=== PATIENT | male | born 1950 | race Caucasian/White ===

== ENCOUNTER 2016-11-25 15:57 | Inpatient (IN) | payer OTHER, MEDICARE ==
[~2016-11-25] VITALS: Ht 185.4 cm; Wt 121.1 kg
--- NOTE | ~2016-11-25 | EKG ---
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 : 1950 Requested By: Mireya Rivera Order Number: [id number] MD: Fady Ruiz Measurements Intervals [place] Rate: 59 P: 22 [place]: 171 QRS: -11 QRSD: 81 T: 11 QT: 388 QTc: 385 Interpretive Statements Sinus rhythm RSR' in V1 or V2, right VCD Left ventricular hypertrophy Compared to ECG 09/29/2015 16:29:12 no significant change was found Electronically Signed On 11-26-2016 8:51:18 CDT by Fady Ruiz [email or web address] <ELECTRONICALLY SIGNED> By: Fady Ruiz MD, [facility] 11/26/16 0851 1611 1611 Fady Ruiz MD, [facility] /EPI
[~2016-11-25 15:57] MED LIST: ATORVASTATIN CA40 MG PO; IBUPROFEN 800800 M1 PO; PREVACID30 MG PO
[2016-11-25 16:09] VITALS: BP 162/109
[2016-11-25 17:30] LABS: BASOPHILS 0.7 % (0.0-2.0); EOSINOPHILS 4.6 % (0.0-3.0); HEMATOCRIT 41.8 % (42.0-52.0); HEMOGLOBIN 14.3 gm/dL (14.0-18.0); LYMPHOCYTES 35.6 % (24.0-44.0); MCH 30.7 pg (26.0-34.0); MCHC 34.2 g/dL (28.0-37.0); MCV 89.7 fL (80.0-100.0); MONOCYTES 7.4 % (1.0-8.0); PLATELET COUNT 155 thou/uL (150-400); POLYS 51.7 % (36.0-66.0); RBC 4.67 mil/uL (4.50-6.00); RDW 13.3 % (10.5-14.5); WBC 7.8 thou/uL (4.0-11.0)
[2016-11-25 17:35] LABS: MANUAL DIFF NO
[2016-11-25 17:39] LABS: ANION GAP 8 mmol/L (7-16); BUN 21 mg/dL (7-18); CALCIUM 8.9 mg/dL (8.5-10.1); CHLORIDE 103 mmol/L (98-107); CO2 28 mmol/L (21-32); CREATININE 0.9 mg/dL (0.7-1.3); GLUCOSE 97 mg/dL (74-106); POTASSIUM 3.9 mmol/L (3.5-5.1); SODIUM 139 mmol/L (136-145)
[2016-11-25 17:47] LABS: TROPONIN-I < 0.04 ng/mL (<0.04-0.07)
[2016-11-25] MEDS ORDERED: OMEPRAZOLE 20 M20 M1 PO (19:13)
[2016-11-25] MEDS ORDERED: TIMOLOL MA0.5 %/5 M2 OPHTHALMIC (19:14)
[2016-11-25 19:58] VITALS: BP 148/82
[2016-11-25 20:41] VITALS: BP 149/73
[2016-11-25 23:50] LABS: APTT 27.5 Seconds (24.5-32.8); INR 1.1; PROTIME 11.2 Seconds (9.3-11.4)
[2016-11-26 00:17] VITALS: BP 123/79
[2016-11-26 03:51] VITALS: BP 121/75
[2016-11-26 06:49] LABS: CHOLESTEROL 155 mg/dL (<200); HDL CHOLESTEROL 47 mg/dL (>40); LDL CHOLESTEROL 84 mg/dL (<100); TC:HDL 3.3 Ratio (Not establshd); TRIGLYCERIDE 121 mg/dL (<150); VLDL 24 mg/dL (<40)
[2016-11-26 08:37] VITALS: BP 128/75
[2016-11-26 12:42] VITALS: BP 142/79
[2016-11-26 16:34] VITALS: BP 138/70
[2016-11-26 19:11] VITALS: BP 102/60
[2016-11-27 05:13] VITALS: BP 128/87
[2016-11-27 09:09] VITALS: BP 129/84
[2016-11-27 12:49] VITALS: BP 138/87
[2016-11-27 13:41] VITALS: BP 138/87
== END 2016-11-27 14:49 | disposition home or self-care (01) | DRG 313 ==
LOC: ER 15:57 → EROBS 19:12 → 4W 19:12
PROVIDERS: Emergency Medicine; Nurse Practitioner
DX: R07.89 Other chest pain (principal); K21.9 Gastro-esophageal reflux disease without esophagitis; E78.5 Hyperlipidemia, unspecified; I83.90 Asymptomatic varicose veins of unspecified lower extremity; H40.9 Unspecified glaucoma; Z87.891 Personal history of nicotine dependence; Z90.49 Acquired absence of other specified parts of digestive tract
CPT/HCPCS: 10045

== ENCOUNTER → 2018-10-28 | Outpatient (CLI) | payer OTHER, MEDICARE ==
[~2018-10-28] VITALS: Ht 180.3 cm; Wt 121.6 kg
[~2018-10-28] MED LIST changes: +FLONASE 0.05%50 MCG NASAL; +LISINOPRIL-HCT1 EAC1 PO; +OMEPRAZOLE 20 M20 M1 PO; +TIMOLOL MA0.5 %/5 M2 OPHTHALMIC
[2018-10-28 12:37] VITALS: BP 144/83
== END | disposition home or self-care (01) ==
LOC: CATH 11:40
DX: I87.2 Venous insufficiency (chronic) (peripheral) (principal); I87.321 Chronic venous hypertension (idiopathic) with inflammation of right lower extremity; I10 Essential (primary) hypertension; E78.5 Hyperlipidemia, unspecified; K21.9 Gastro-esophageal reflux disease without esophagitis; M79.89 Other specified soft tissue disorders; Z82.49 Family history of ischemic heart disease and other diseases of the circulatory system; Z98.890 Other specified postprocedural states; Z90.49 Acquired absence of other specified parts of digestive tract; Z79.899 Other long term (current) drug therapy; Z87.891 Personal history of nicotine dependence

== ENCOUNTER → 2020-03-20 | Outpatient (CLI) | payer OTHER, MEDICARE | LOC: SJCVCIMAG 02-14 16:04 | PROVIDERS: ATTEND Internal Medicine Cardiovascular Disease | DX: I45.2 Bifascicular block (principal); I10 Essential (primary) hypertension; E78.5 Hyperlipidemia, unspecified; Z82.49 Family history of ischemic heart disease and other diseases of the circulatory system ==

== ENCOUNTER → 2020-11-18 | Outpatient (CLI) | payer OTHER, MEDICARE | LOC: SJCVC 10:49 | PROVIDERS: ATTEND Internal Medicine Cardiovascular Disease | DX: R94.31 Abnormal electrocardiogram [ECG] [EKG] (principal); I45.2 Bifascicular block; I11.9 Hypertensive heart disease without heart failure; E78.00 Pure hypercholesterolemia, unspecified; I87.2 Venous insufficiency (chronic) (peripheral); K21.9 Gastro-esophageal reflux disease without esophagitis; Z82.49 Family history of ischemic heart disease and other diseases of the circulatory system; Z87.891 Personal history of nicotine dependence; Z72.89 Other problems related to lifestyle; Z79.899 Other long term (current) drug therapy ==

== ENCOUNTER → 2021-05-09 | Outpatient (CLI) | payer OTHER, MEDICARE | LOC: SJCVCIMAG 08:35 | PROVIDERS: ATTEND Internal Medicine Cardiovascular Disease | DX: I08.8 Other rheumatic multiple valve diseases (principal); I10 Essential (primary) hypertension; E78.00 Pure hypercholesterolemia, unspecified; I87.2 Venous insufficiency (chronic) (peripheral); K21.9 Gastro-esophageal reflux disease without esophagitis; Z82.49 Family history of ischemic heart disease and other diseases of the circulatory system; Z79.899 Other long term (current) drug therapy; Z72.89 Other problems related to lifestyle; Z87.891 Personal history of nicotine dependence ==